=== PATIENT | female | born 1945 | race Caucasian/White ===

== ENCOUNTER 2025-01-02 17:52 | Emergency (ER) | payer OTHER ==
[~2025-01-02] VITALS: Ht 154.9 cm; Wt 93.0 kg
[2025-01-02] MEDS ORDERED: Morphine Sulfate 4 MG/1 ML Injection IV ONE (18:25)
[2025-01-02 19:04] LABS: BASOPHILS ABSOLUTE AUTO 0.05 K/mm3 (0.00-0.23); BASOPHILS PERCENT AUTO 1 % (0-2); EOSINOPHILS ABSOLUTE AUTO 0.15 K/mm3 (0.00-0.68); EOSINOPHILS PERCENT AUTO 2 % (0-6); Hematocrit 32.8 % (33.0-51.0); Hemoglobin 10.7 g/dL (11.5-16.0); IMMATURE GRAN ABSOLUTE AUTO 0.09 K/mm3 (0.00-0.10); IMMATURE GRAN PERCENT AUTO 1 % (0-1); LYMPHOCYTES ABSOLUTE AUTO 1.45 K/mm3 (0.84-5.20); LYMPHOCYTES PERCENT AUTO 18 % (21-46); MONOCYTES PERCENT AUTO 9 % (4-13); Mean Corpuscular HGB 31.5 pg (26.0-34.0); Mean Corpuscular HGB Conc 32.6 g/dL (31.5-36.5); Mean Corpuscular Volume 97 fL (80-100); Mean Platelet Volume 8.8 fL (9.1-12.4); NEUTROPHILS ABSOLUTE AUTO 5.79 K/mm3 (1.96-9.15); NEUTROPHILS PERCENT AUTO 70 % (41-73); Platelet Count 325 K/mm3 (150-400); RDW Coefficient Variation 15.9 % (11.7-14.2); RDW Standard Deviation 55.5 fL (35.1-46.3); White Blood Cell Count 8.23 K/mm3 (4.00-11.30)
[2025-01-02 19:12] LABS: Prothrombin Time Results 10.7 Sec (9.7-11.5)
[2025-01-02 19:35] LABS: Albumin, Blood 2.9 g/dL (3.4-5.0); Albumin/Globulin Ratio 0.8 (0.8-1.8); Bilirubin, Total 0.8 mg/dL (0.1-1.0); Calcium, Blood 9.2 mg/dL (8.5-10.1); Creatinine, Blood 0.9 mg/dL (0.40-1.00); Globulin, Blood 3.5 g/dL (2.2-4.0); Potassium, Blood 4.1 mmol/L (3.5-5.5); Total Protein, Blood 6.4 g/dL (6.4-8.2)
[2025-01-02] MEDS ORDERED: HYDROmorphone HCl/Pf 1MG SYR IV ONE (20:00)
[2025-01-02] MEDS ORDERED: Methocarbamol 500 MG Tab PO ONE (21:05)
== END 2025-01-02 23:42 | disposition home or self-care (01) ==
LOC: ER 17:52
PROVIDERS: Student in an Organized Health Care Education/Training Program
DX: S72.142D Displaced intertrochanteric fracture of left femur, subsequent encounter for closed fracture with routine healing (principal); M25.452 Effusion, left hip; M25.552 Pain in left hip; Z98.890 Other specified postprocedural states; W19.XXXD Unspecified fall, subsequent encounter
CPT/HCPCS: 72193; 80053; 85025; 85610; 85730; 86850; 86900; 86901; 96374; 96375; 99284-25; J1171; J2270; Q9967

== ENCOUNTER 2025-02-03 21:22 | Emergency (ER) | payer OTHER ==
[~2025-02-03] VITALS: Ht 154.9 cm; Wt 90.7 kg
[2025-02-03 21:53] LABS: BASOPHILS ABSOLUTE AUTO 0.07 K/mm3 (0.00-0.23); BASOPHILS PERCENT AUTO 1 % (0-2); EOSINOPHILS ABSOLUTE AUTO 0.26 K/mm3 (0.00-0.68); EOSINOPHILS PERCENT AUTO 4 % (0-6); Hematocrit 31.1 % (33.0-51.0); Hemoglobin 9.8 g/dL (11.5-16.0); IMMATURE GRAN ABSOLUTE AUTO 0.02 K/mm3 (0.00-0.10); IMMATURE GRAN PERCENT AUTO 0 % (0-1); LYMPHOCYTES ABSOLUTE AUTO 2.41 K/mm3 (0.84-5.20); LYMPHOCYTES PERCENT AUTO 32 % (21-46); MONOCYTES ABSOLUTE AUTO 0.64 K/mm3 (0.16-1.47); MONOCYTES PERCENT AUTO 9 % (4-13); Mean Corpuscular HGB 30.6 pg (26.0-34.0); Mean Corpuscular HGB Conc 31.5 g/dL (31.5-36.5); Mean Corpuscular Volume 97 fL (80-100); Mean Platelet Volume 8.8 fL (9.1-12.4); NEUTROPHILS ABSOLUTE AUTO 4.12 K/mm3 (1.96-9.15); NEUTROPHILS PERCENT AUTO 55 % (41-73); Platelet Count 343 K/mm3 (150-400); RDW Coefficient Variation 16.1 % (11.7-14.2); RDW Standard Deviation 57.8 fL (35.1-46.3); White Blood Cell Count 7.52 K/mm3 (4.00-11.30)
[2025-02-03 22:11] LABS: Albumin/Globulin Ratio 0.8 (0.8-1.8); Bilirubin, Total 0.2 mg/dL (0.1-1.0); Bun/Creatinine Ratio 32.5 (12.0-20.0); Calcium, Blood 8.7 mg/dL (8.5-10.1); Creatinine, Blood 1.23 mg/dL (0.40-1.00); Globulin, Blood 3.7 g/dL (2.2-4.0); Potassium, Blood 3.9 mmol/L (3.5-5.5); Total Protein, Blood 6.7 g/dL (6.4-8.2)
[2025-02-04] MEDS ORDERED: Ketorolac Tromethamine 15mg Vial IV ONE (01:05)
== END 2025-02-04 05:20 | disposition home or self-care (01) ==
LOC: ER 21:22
PROVIDERS: Student in an Organized Health Care Education/Training Program
DX: R07.89 Other chest pain (principal)
CPT/HCPCS: 71045; 71260; 80053; 84484; 85025; 85379; 93005; 93010; J1885; Q9967

== ENCOUNTER 2025-02-09 15:57 | Emergency (ER) | payer OTHER ==
[~2025-02-09] VITALS: Ht 154.9 cm; Wt 89.4 kg
[2025-02-09 16:33] LABS: BASOPHILS ABSOLUTE AUTO 0.07 K/mm3 (0.00-0.23); BASOPHILS PERCENT AUTO 1 % (0-2); EOSINOPHILS ABSOLUTE AUTO 0.23 K/mm3 (0.00-0.68); EOSINOPHILS PERCENT AUTO 4 % (0-6); Hematocrit 31.4 % (33.0-51.0); Hemoglobin 9.9 g/dL (11.5-16.0); IMMATURE GRAN ABSOLUTE AUTO 0.02 K/mm3 (0.00-0.10); IMMATURE GRAN PERCENT AUTO 0 % (0-1); LYMPHOCYTES ABSOLUTE AUTO 2.41 K/mm3 (0.84-5.20); LYMPHOCYTES PERCENT AUTO 37 % (21-46); MONOCYTES ABSOLUTE AUTO 0.57 K/mm3 (0.16-1.47); MONOCYTES PERCENT AUTO 9 % (4-13); Mean Corpuscular HGB 30.6 pg (26.0-34.0); Mean Corpuscular HGB Conc 31.5 g/dL (31.5-36.5); Mean Corpuscular Volume 97 fL (80-100); Mean Platelet Volume 8.5 fL (9.1-12.4); NEUTROPHILS ABSOLUTE AUTO 3.23 K/mm3 (1.96-9.15); NEUTROPHILS PERCENT AUTO 50 % (41-73); Platelet Count 308 K/mm3 (150-400); RDW Coefficient Variation 15.9 % (11.7-14.2); RDW Standard Deviation 57.5 fL (35.1-46.3); Red Blood Cell Count 3.24 M/mm3 (3.80-5.20); White Blood Cell Count 6.53 K/mm3 (4.00-11.30)
[2025-02-09] MEDS ORDERED: Aspir 8181 MG PO (16:39)
[2025-02-09] MEDS ORDERED: IRBE75 PO (16:39)
[2025-02-09] MEDS ORDERED: DOCU100 PO (16:39)
[2025-02-09] MEDS ORDERED: LEVOTHYROXINE100 M10 PO (16:40)
[2025-02-09] MEDS ORDERED: SENN187 PO (16:41)
[2025-02-09] MEDS ORDERED: MELATONIN3 M3 PO (16:41)
[2025-02-09] MEDS ORDERED: MIRT15 PO (16:41)
[2025-02-09] MEDS ORDERED: ERGO50000 PO (16:42)
[2025-02-09] MEDS ORDERED: ASPI325 PO (16:43)
[2025-02-09] MEDS ORDERED: PROTONIX40 M2 PO (16:44)
[2025-02-09] MEDS ORDERED: PYRIDIUM200 MG PO (16:44)
[2025-02-09] MEDS ORDERED: NITR100CA PO (16:44)
[2025-02-09] MEDS ORDERED: BISA10S PR (16:45)
[2025-02-09] MEDS ORDERED: APAP500 MG PO (16:45)
[2025-02-09] MEDS ORDERED: BACL10 PO (16:45)
[2025-02-09] MEDS ORDERED: HYDRA25 PO (16:46)
[2025-02-09] MEDS ORDERED: FAMO20 PO (16:46)
[2025-02-09] MEDS ORDERED: MIRALAX17 GM PO (16:47)
[2025-02-09] MEDS ORDERED: ONDA4 PO (16:48)
[2025-02-09] MEDS ORDERED: NITR.4SL SL (16:48)
[2025-02-09] MEDS ORDERED: OXAYDO5 M1 PO (16:49)
[2025-02-09] MEDS ORDERED: Calcium Carbon500 MG PO (16:49)
[2025-02-09 16:50] LABS: Albumin, Blood 3.1 g/dL (3.4-5.0); Albumin/Globulin Ratio 0.9 (0.8-1.8); Bilirubin, Total 0.4 mg/dL (0.1-1.0); Bun/Creatinine Ratio 32.8 (12.0-20.0); Calcium, Blood 9.5 mg/dL (8.5-10.1); Creatinine, Blood 0.85 mg/dL (0.40-1.00); Globulin, Blood 3.6 g/dL (2.2-4.0); Potassium, Blood 4.1 mmol/L (3.5-5.5); Total Protein, Blood 6.7 g/dL (6.4-8.2)
[2025-02-09] MEDS ORDERED: Morphine Sulfate 4 MG/1 ML Injection IV ONE ×2 (19:40→23:15)
[2025-02-09] MEDS ORDERED: Piperacillin/Tazobactam Sod 4.5 GM in NS 100 ML IV ONE (21:35)
[2025-02-09] MEDS ORDERED: Vancomycin HCL 1,750 MG in NS 500 ML IV ONE (21:45)
[2025-02-10] MEDS ORDERED: Diazepam 5 MG / ML 2ML SYR IV ONE (01:20)
[2025-02-10] MEDS ORDERED: Morphine Sulfate 4 MG/1 ML Injection IV ONE (04:15)
== END 2025-02-10 04:34 ==
LOC: ER 15:57
PROVIDERS: Emergency Medicine
DX: L02.416 Cutaneous abscess of left lower limb (principal); M86.8X8 Other osteomyelitis, other site; E03.9 Hypothyroidism, unspecified; I10 Essential (primary) hypertension; K21.9 Gastro-esophageal reflux disease without esophagitis; I12.9 Hypertensive chronic kidney disease with stage 1 through stage 4 chronic kidney disease, or unspecified chronic kidney disease; N18.30 Chronic kidney disease, stage 3 unspecified; Z79.82 Long term (current) use of aspirin; Z79.899 Other long term (current) drug therapy
CPT/HCPCS: 36415; 72193; 80053; 83605; 85025; 87040; 87070; 87075; 87077; 87186; 87205; 96365; 96366; 96367; 96375; 96376; 99285-25; A6590; J2270; J2543; J3360; J3370; J7040; Q9967